=== PATIENT | female | born 1960 | race Caucasian/White ===

== ENCOUNTER 2023-05-21 07:02 | Outpatient (CLI) | payer BC, SELFPAY ==
--- NOTE | 2023-05-21 07:15 | CRLHL7_ITS ---
For Patients: As a result of the Century Cures Act, medical imaging exams and procedure reports are released immediately into your electronic medical record. You may view this report before your referring provider. If you have questions, please contact your health care provider. Indication: Lumbar radiculopathy. Technique: Multisequence multiplanar MRI of the lumbar spine without contrast. Comparison: None available. Findings: Normal alignment. Vertebral body heights are maintained. No T1 hypointense lesion is identified. A T1/T2 hyperintense L3 vertebral body hemangioma is noted. Mild disc desiccation from L3-S1 with intervertebral disc height loss most pronounced at L5-S1. The conus medullaris terminates normally at the upper L2 level. The paraspinal soft tissues are normal in signal intensity. Evaluation of the individual levels demonstrates: T12-L1 through L2-L3: No significant spinal canal or neural foraminal narrowing. L3-L4: Shallow symmetric disc bulge without significant spinal canal or neural foraminal stenosis. L4-L5: No significant spinal canal stenosis. Mild-moderate bilateral neural foraminal narrowing from a shallow symmetric disc bulge and facet joint hypertrophy. L5-S1: Shallow symmetric disc bulge without significant spinal canal or neural foraminal stenosis. Impression: 1. Mild multilevel spondylosis without characterized largely by facet hypertrophy and disc desiccation L4-L5 and L5-S1. 2. No significant spinal canal stenosis. 3. At L4-5, [id number] bilateral neural foraminal narrowing. Dictated by Dao Olvera MD @ 05/21/2023 12:27:17 PM (Electronically Signed)
== END 2023-05-21 07:03 | disposition home or self-care (01) ==
PROVIDERS: Visit Provider Family Medicine
DX: M54.16 Radiculopathy, lumbar region (principal); M51.27 Other intervertebral disc displacement, lumbosacral region; M47.896 Other spondylosis, lumbar region
CPT/HCPCS: 72148

== ENCOUNTER 2023-08-12 09:30 | Outpatient (CLI) | payer BC, SELFPAY | END 2023-08-12 09:31 | disposition home or self-care (01) | LOC: INJ CL 09:31 | PROVIDERS: Visit Provider Family Medicine | DX: M54.16 Radiculopathy, lumbar region (principal); M51.36 Other intervertebral disc degeneration, lumbar region | CPT/HCPCS: 62323; J0702; Q9966 ==

== ENCOUNTER 2023-08-14 06:18 | Day surgery (SDC) | payer BC, SELFPAY ==
[2023-08-14] VITALS (15 sets, daily range): BP systolic 103–128; BP diastolic 66–79; PULSE 51–69; RESP 12–20; TEMP 36.4–37.3; O2SAT 95–99; BMI 21.9
[2023-08-14] MEDS: LACTATED RINGERS 1000 ML 1,000 ML 100 ML IV (06:35)
[2023-08-14] MEDS: SODIUM CHLORIDE 0.9 % (FLUSH) 10 ML SYRINGE IVF (06:35)
[2023-08-14] MEDS: PIPERACILLIN/TAZOBACTAM 3.375 GM INJ IVPB (08:24)
[2023-08-14] MEDS: BUPIVACAINE 0.25% 30 ML INJECTION (09:24)
--- NOTE | 2023-08-14 09:38 | W.ANESCHARGE ---
Anesthesia Charges Start Date/Time Anesthesia Start Date: 08/14/23 Anesthesia Start Time: 08:13 Stop Date/Time Anesthesia Stop Date: 08/14/23 Anesthesia Stop Time: 09:37
--- NOTE | 2023-08-14 09:39 | P.GSOP_ITS ---
Operative Note Date of procedure: 08/14/23 Pre-op diagnosis: Endoscopically unresectable sessile serrated adenoma at the appendiceal orifice. Post-op diagnosis: Same Type of Procedure: Laparoscopic appendectomy Indications: The patient is a 62-year-old female who was undergoing surveillance colonoscopy for history of polyps. She was found to have a sessile serrated adenoma within the appendiceal orifice. This was not amenable to endoscopic excision and therefore she was referred for surgical excision. We discussed performing an appendectomy and possible partial cecectomy or even ileocolic resection to completely remove the polyp. She agreed to proceed. Procedure Description: After discussing the risks and benefits of the procedure, the patient signed informed consent.? The operative site was marked and the patient was brought to the operating room and placed on the operating table in supine position.? Care was taken to pad the patient's pressure points.?? The patient was then intubated by anesthesia.?? The operative site was then prepped and draped in the usual sterile fashion.? A time-out was then performed. Entrance to the abdomen was obtained via a 5 mm optical trocar in the left upper quadrant. The abdomen was insufflated and briefly surveyed for any signs of inj ury. There were none. A 12 mm port was placed inferior to the umbilicus as well as a 5 mm port in the left lower quadrant. Both were done under direct vision. There was 1 narrow adhesion between the omentum and the umbilicus which was divided using LigaSure. The patient was then placed in Trendelenburg position with the right side up. The small bowel was gently moved out of the way and the appendix was in view. This was grasped and pulled into view. A mesenteric window was created using a Tri dissected her at the base of the appendix. A 60 mm purple load Endo-LONDON stapler was advanced into the abdomen. I was able to easily position this below the base of the appendix to take a small cuff of cecum. This still left plenty of room between the cecum and the ileocecal valve. The appendix was then divided at its base. I used LigaSure to divide the mesoappendix. A small area of bleeding on the staple line of the cecum was clipped resulting in hemostasis. The appendix was then removed from the abdomen using an Endo-Catch bag. I then examined the appendix on the back table. I opened the specimen at the staple line. There was a rim of normal mucosa around the appendiceal orifice. The polyp was subtle, however it did appear as though it was contained within the specimen again with a cuff of normal appearing colonic mucosa circumferentially. This was then sent to pathology. I examined the surgical site once again. There was no evidence of bleeding. Local anesthetic was injected into the skin and subcutaneous tissue around the port sites. The 12 mm port site fascia was closed with 0 Vicryl. The skin was then closed with absorbable subcuticular suture. Sterile dressings were then applied. Instrument sponge and needle counts were correct at the end of the case. The patient was then woken and transported to the PACU in stable condition. The patient tolerated the procedure well. Findings: On gross examination, polyp appeared to be contained within the specimen with a margin of normal appearing mucosa. Anesthesia: GETA Surgeon: Tawanna Osborne MD Estimated blood loss (mL): 5 Specimen: Appendix Condition: stable Disposition: PACU
[2023-08-14] MEDS: fentaNYL 100 MCG/2 ML inj 50 MCG IVP (09:55)
--- NOTE | 2023-08-14 10:35 | W.ANESCHARGE ---
Anesthesia Charges Start Date/Time Anesthesia Start Date: 08/14/23 Anesthesia Start Time: 08:13 Stop Date/Time Anesthesia Stop Date: 08/14/23 Anesthesia Stop Time: 09:37
== END 2023-08-14 12:33 | disposition home or self-care (01) ==
PROVIDERS: Visit Provider Surgery
PROC: 0DTH4ZZ Resection of Cecum, Percutaneous Endoscopic Approach (ICD-10-PCS; CPT 44204; principal; 2023-08-14 08:30)
DX: D12.1 Benign neoplasm of appendix (principal)
CPT/HCPCS: 44970; 00840; 88304; 88305; 88307; J0330; J0665; J2250; J2543; J2704; J2710; J3010; J7120

== ENCOUNTER 2023-12-31 10:15 | Outpatient (RCR) | payer BC, SELFPAY | END 2024-04-29 23:59 | disposition home or self-care (01) | PROVIDERS: Visit Provider Family Medicine | DX: M54.16 Radiculopathy, lumbar region (principal); M51.36 Other intervertebral disc degeneration, lumbar region; Z51.89 Encounter for other specified aftercare; M54.2 Cervicalgia | CPT/HCPCS: 97110; 97140; 97162; 97530 ==